=== PATIENT | female | born 1995 | race African-American/Black ===

== ENCOUNTER 2017-11-17 05:40 | Emergency (ER) | payer BC, SELFPAY ==
--- NOTE | 2017-11-17 06:32 | ER ---
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 Transition of care: patient was not received from another setting of care. Onset of symptoms was November 17, 2017. Risk Assessment: Do you want to hurt yourself or someone else? Patient reports no desire to harm self or others. Initial Sepsis Screen: Does the patient meet any 2 criteria? No. Patient's initial sepsis screen is negative. Does the patient have a suspected source of infection? No. Patient's initial sepsis screen is negative. Care prior to arrival: None. 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 - Social history:: Smoking status: Patient/guardian denies using tobacco, Patient/guardian denies using alcohol, street drugs. - Ebola Screening: : No symptoms or risks identified at this time. Screenin:04 Abuse screen: Denies threats or abuse. Denies injuries from another. Nutritional ak1 screening: No deficits noted. Tuberculosis screening: No symptoms or risk factors identified. Fall Risk None identified. Assessment: 06:02 General: Appears in no apparent distress. Behavior is calm, cooperative. Pain: ak1 Complains of pain in back pain. Neuro: Level of Consciousness is awake, alert, obeys commands, Oriented to person, place, time, situation, Rail Loader are equal bilaterally Moves all extremities. Gait is steady. Cardiovascular: No deficits noted. Respiratory: No deficits noted. GI: No signs and/or symptoms were reported involving the gastrointestinal system. : Reports vaginal itching. EENT: No signs and/or symptoms were reported regarding the EENT system. Derm: No signs and/or symptoms reported regarding the dermatologic system. Musculoskeletal: Range of motion: intact in all extremities, Reports pain in back. 06:41 Reassessment: Patient appears in no apparent distress at this time. No changes from ak1 previously documented assessment. pt sent to [facility] for urine sample and unable to provide one as of yet. Vital Signs: 05:52 BP 130 / 72; Pulse 96; Resp 16 S; Temp 98.8(O); Pulse Ox 99% on R/A; Weight 89.81 kg bb (R); Height 5 ft. 6 in. (167.64 cm) (R); Pain 6/10; 06:04 BP 112 / 73; Pulse 63; Resp 16; Pulse Ox 99% on R/A; Pain 6/10; ak1 05:52 Body Mass Index 31.96 (89.81 kg, 167.64 cm) ED Course: 05:40 Patient arrived in ED. ds1 05:42 Kirill Aldana DO is Private Physician. ds1 05:48 Nancie Miller, RN is Primary Nurse. ak1 05:50 Jeremias Sam MD is Attending Physician. [facility] 05:51 Triage completed. 05:52 Arm band placed on Patient placed in an exam room, on a stretcher, on pulse oximetry. bb 06:04 Patient has correct armband on for positive identification. Bed in low position. Call ak1 light in reach. Side rails up X 1. Pulse ox on. NIBP on. 06:31 Kirill Aldana DO is Referral Physician. ronan 06:31 Aixa Coe MD is Referral Physician. ronan 06:41 Assist provider with pelvic exam: Performed by Jeremias Sam MD visual vaginal exam by ak1 ERP. pt stated to provider there was a rash located on her vaginal area. No redness, no lesions, no discharge noted during visual vaginal exam. Patient did not have IV access during this emergency room visit. Administered Medications: No medications were administered Outcome: 06:31 Discharge ordered by . ronan 06:45 Condition: stable ak1 06:54 Discharged to home ambulatory. ak1 06:54 Discharge instructions given to patient, Instructed on discharge instructions, follow up and referral plans. no drinking with medication, no driving heavy equipment, medication usage, safe sex practices, Demonstrated understanding of instructions, follow-up care, medications, Prescriptions given X 2. 06:55 Patient left the ED. ak1 Signatures: Jeremias Sam MD MD cha Sanford, Demi ds1 Maryellen Jaramillo RN RN Nancie Solano RN RN ak1
--- NOTE | 2017-11-17 06:32 | EDPHYS ---
Physician Documentation [facility] Name: Lisa You Age: 22 yrs Sex: Female : 1995 Arrival Date: 11/17/2017 Time: 05:40 Bed 7 Private MD: Jovan [facility] ED Physician Jeremias Sam HPI: 11/17 06:13 This 22 yrs old Black Female presents to ER via Ambulatory with complaints of Back Pain.ronan 06:13 The patient presents with pain that is acute, with no known mechanism of injury. The ronan symptoms are located in the low back. 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 - Social history:: Smoking status: Patient/guardian denies using tobacco, Patient/guardian denies using alcohol, street drugs. - Ebola Screening: : No symptoms or risks identified at this time. ROS: 06:15 Constitutional: Negative for fever, chills, and weight loss, Eyes: Negative for injury, ronan pain, redness, and discharge, ENT: Negative for injury, pain, and discharge, Neck: Negative for injury, pain, and swelling, Cardiovascular: Negative for chest pain, palpitations, and edema, Respiratory: Negative for shortness of breath, cough, wheezing, and pleuritic chest pain, Abdomen/GI: Negative for abdominal pain, nausea, vomiting, diarrhea, and constipation, MS/Extremity: Negative for injury and deformity, Skin: Negative for injury, rash, and discoloration, Neuro: Negative for headache, weakness, numbness, tingling, and seizure, Psych: Negative for depression, anxiety, suicide ideation, homicidal ideation, and hallucinations, Allergy/Immunology: Negative for hives, rash, and allergies, Endocrine: Negative for neck swelling, polydipsia, polyuria, polyphagia, and marked weight changes, Hematologic/Lymphatic: Negative for swollen nodes, abnormal bleeding, and unusual bruising. 06:15 Back: Positive for pain with movement, flank pain, bilaterally. Exam: 06:15 Constitutional: This is a well developed, well nourished patient who is awake, alert, ronan and in no acute distress. Head/Face: Normocephalic, atraumatic. Eyes: Pupils equal round and reactive to light, extra-ocular motions intact. Lids and lashes normal. Conjunctiva and sclera are non-icteric and not injected. Cornea within normal limits. Periorbital areas with no swelling, redness, or edema. ENT: Nares patent. No nasal discharge, no septal abnormalities noted. Tympanic membranes are normal and external auditory canals are clear. Oropharynx with no redness, swelling, or masses, exudates, or evidence of obstruction, uvula midline. Mucous membranes moist. Neck: Trachea midline, no thyromegaly or masses palpated, and no cervical lymphadenopathy. Supple, full range of motion without nuchal rigidity, or vertebral point tenderness. No Meningismus. Chest/axilla: Normal chest wall appearance and motion. Nontender with no deformity. No lesions are appreciated. Cardiovascular: Regular rate and rhythm with a normal S1 and S2. No gallops, murmurs, or rubs. Normal PMI, no JVD. No pulse deficits. Respiratory: Lungs have equal breath sounds bilaterally, clear to auscultation and percussion. No rales, rhonchi or wheezes noted. No increased work of breathing, no retractions or nasal flaring. Abdomen/GI: Soft, non-tender, with normal bowel sounds. No distension or tympany. No guarding or rebound. No evidence of tenderness throughout. Back: No spinal tenderness. No costovertebral tenderness. Full range of motion. Skin: Warm, dry with normal turgor. Normal color with no rashes, no lesions, and no evidence of cellulitis. MS/ Extremity: Pulses equal, no cyanosis. Neurovascular intact. Full, normal range of motion. Neuro: Awake and alert, GCS 15, oriented to person, place, time, and situation. Cranial nerves II-XII grossly intact. Motor strength 5/5 in all extremities. Sensory grossly intact. Cerebellar exam normal. Normal gait. Psych: Awake, alert, with orientation to person, place and time. Behavior, mood, and affect are within normal limits. 06:15 : Pelvic Exam: External exam: is normal, no appreciated Bartholin's cyst, no erythema, not excoriated, no evidence of foreign body, no lesions, no ulcerations, no warts seen, Bladder: is normal. 06:15 : Bladder: is normal, non-distended, non-tender. [facility] Vital Signs: 05:52 BP 130 / 72; Pulse 96; Resp 16 S; Temp 98.8(O); Pulse Ox 99% on R/A; Weight 89.81 kg bb (R); Height 5 ft. 6 in. (167.64 cm) (R); Pain 6/10; 06:04 BP 112 / 73; Pulse 63; Resp 16; Pulse Ox 99% on R/A; Pain 6/10; ak1 05:52 Body Mass Index 31.96 (89.81 kg, 167.64 cm) MDM: 05:50 Patient medically screened. [facility] 06:15 Data reviewed: vital signs, nurses notes, lab test result(s), urinalysis. [facility] 11/17 06:13 Order name: Urine Culture [facility] 11/17 06:50 Order name: Urine Dipstick--Ancillary (enter results) [facility] 11/17 06:13 Order name: Urine Test (obtain specimen); Complete Time: 06:49 [facility] 11/17 06:13 Order name: Urine Dipstick-Ancillary (obtain specimen); Complete Time: 06:49 [facility] 11/17 06:50 Order name: Urine --Ancillary (enter results) 2 Administered Medications: No medications were administered Disposition: 11/17/17 06:31 Discharged to Home. Impression: Low back pain. - Condition is Stable. - Discharge Instructions: Back Pain, Adult, Musculoskeletal Pain, How to Take a Sitz Bath. - Prescriptions for Motrin IB 200 mg Oral Tablet - take 2 tablet by ORAL route every 6 hours As needed as needed with food; 30 tablet. Fluconazole 150 mg Oral Tablet - take 1 tablet by ORAL route once daily; 2 tablet. - Medication Reconciliation Form, Thank You Letter, Antibiotic Education, Prescription Opioid Use form. - Follow up: Kirill Aldana; When: 2 - 3 days; Reason: Recheck today's complaints, Continuance of care, Re-evaluation by your physician. Follow up: Aixa Coe; When: 2 - 3 days; Reason: Recheck today's complaints, Re-evaluation by your physician. - Problem is new. - Symptoms have improved. Signatures: Dispatcher [employer] Jeremias Khan MD MD cha Ballard, Brenda, RN RN bb Nancie Miller, RN RN ak1 Corrections: (The following items were deleted from the chart) 06:55 06:31 11/17/2017 06:31 Discharged to Home. Impression: Low back pain. Condition is ak1 Stable. Discharge Instructions: Back Pain, Adult, Musculoskeletal Pain. Prescriptions for Motrin IB 200 mg Oral Tablet - take 2 tablet by ORAL route every 6 hours As needed as needed with food; 30 tablet. and Forms are Medication Reconciliation Form, Thank You Letter, Antibiotic Education, Prescription Opioid Use. Follow up: Kirill Aldana; When: 2 - 3 days; Reason: Recheck today's complaints, Continuance of care, Re-evaluation by your physician. Follow up: Aixa Coe; When: 2 - 3 days; Reason: Recheck today's complaints, Re-evaluation by your physician. Problem is new. Symptoms have improved. ronan
[2017-11-17 07:22] LABS: Urine Blood NEGATIVE (NEG); Urine Glucose NEGATIVE (NEG); Urine Protein NEGATIVE (NEG)
== END 2017-11-17 06:55 | disposition home or self-care (01) ==
LOC: ER 05:40
DX: M54.5 Low back pain (principal); Z88.0 Allergy status to penicillin
CPT/HCPCS: 81003; 81025; 87086; 87088; 99283